=== PATIENT | male | born 1955 | race American Indian/Alaskan Native ===

== ENCOUNTER 2020-10-26 12:12 | Emergency (ER) | payer MEDICARE ==
--- NOTE | 2020-10-26 12:38 | Event Note ---
ED Screening Note ED Screening Note: Patient states he tested positive for Covid on 10/18/2020 He states he received the COVID-19 vaccine shot on 10/10/2020 He states that 2 days before he received the vaccine, he had a client come into his office and was coughing, he states that they tested positive for Covid He has associated cough, shortness of breath, chest discomfort after frequent coughing, diarrhea He denies any fever, nausea, vomiting, abdominal pain Past medical history of gout No allergies to medications This initial assessment/diagnostic orders/clinical plan/treatment(s) is/are subject to change based on patients health status, clinical progression and re- assessment by fellow clinical providers in the ED. Further treatment and workup at subsequent clinical providers discretion. Patient/guardian urged not to elope from the ED as their condition may be serious if not clinically assessed and managed. Initial orders include: Labs, x-ray
[2020-10-26 13:25] LABS: Basophils % (Auto) 0.7 % (0.0-1.8); Eosinophils # (Auto) 0.1 K/mm3 (0.0-0.4); Eosinophils % (Auto) 1.1 % (0.0-4.3); Hematocrit 45.7 % (35.5-45.6); Lymphocytes # (Auto) 1.9 K/mm3 (1.2-5.4); Lymphocytes % (Auto) 31.3 % (13.4-35.0); Mean Corpuscular HGB Conc 33 % (32-34); Mean Corpuscular Volume 87 fl (84-94); Monocytes # (Auto) 0.7 K/mm3 (0.0-0.8); Monocytes % (Auto) 11.3 % (0.0-7.3); Platelet Count 364 K/mm3 (140-440); Red Blood Count 5.26 M/mm3 (3.65-5.03); Red Cell Distribution Width 15.5 % (13.2-15.2)
[2020-10-26 13:44] LABS: Alanine Aminotransferase 38 units/L (7-56); Albumin 3.4 g/dL (3.9-5); BUN/Creatinine Ratio 11; Blood Urea Nitrogen 10 mg/dL (9-20); Calcium 8.8 mg/dL (8.4-10.2); Hemolysis Index 14
--- NOTE | 2020-10-26 13:44 | XRay Report ---
CHEST 2 VIEWS INDICATION: cough, SOB, COVID +. COMPARISON: None FINDINGS: SUPPORT DEVICES: None. HEART: Within normal limits. LUNGS/PLEURA: Mild patchy multifocal airspace disease. No effusion. No pneumothorax. ADDITIONAL FINDINGS: None. IMPRESSION: 1. Pulmonary findings as above can be seen with Covid pneumonia. Signer Name: Guevara Sheridan MD Signed: 10/26/2020 1:40 PM Workstation Name: [id number]
--- NOTE | 2020-10-26 14:05 | Emergency Department Report ---
- General Chief Complaint: Dyspnea/Respdistress Stated Complaint: CHEST PAIN, CALLIE Time Seen by Provider: 10/26/20 14:02 Source: patient Mode of arrival: Ambulatory Limitations: No Limitations - History of Present Illness Initial Comments: Patient states he tested positive for Covid on 10/18/2020 He states he received the COVID-19 vaccine shot on 10/10/2020 He states that 2 days before he received the vaccine, he had a client come into his office and was coughing, he states that they tested positive for Covid He has associated cough, shortness of breath, chest discomfort after frequent coughing, diarrhea He denies any fever, nausea, vomiting, abdominal pain Past medical history of gout No allergies to medications - Related Data Previous Rx's Medication Instructions Recorded Last Taken Type Albuterol Sulfate [Proventil Hfa] 1 inhalation IH TID PRN #1 10/26/20 Unknown Rx hfa.[email or web address] Azithromycin [Zithromax TAB] 250 mg PO QDAY 5 Days #6 tablet 10/26/20 Unknown Rx Prednisone [predniSONE 10 mg 10 mg PO .TAPER #1 tab.ds.pk 10/26/20 Unknown Rx (6-Day Pack, 21 Tabs)] Allergies Allergy/AdvReac Type Severity Reaction Status Date / Time No Known Allergies Allergy Verified 10/26/20 12:38 ED Review of Systems ROS: Stated complaint: CHEST PAIN, CALLIE Other details as noted in HPI Comment: All other systems reviewed and negative ED Past Medical Hx - Past Medical History Additional medical history: gout - Surgical History Past Surgical History?: No Additional Surgical History: L knee sx. fluroscopy - Social History Smoking Status: Former Smoker Substance Use Type: None - Medications Home Medications: Home Medications Medication Instructions Recorded Confirmed Last Taken Type Albuterol Sulfate [Proventil Hfa] 1 inhalation IH TID PRN #1 10/26/20 Unknown Rx hfa.[email or web address] Azithromycin [Zithromax TAB] 250 mg PO QDAY 5 Days #6 tablet 10/26/20 Unknown Rx Prednisone [predniSONE 10 mg 10 mg PO .TAPER #1 tab.ds.pk 10/26/20 Unknown Rx (6-Day Pack, 21 Tabs)] ED Physical Exam - General Limitations: No Limitations General appearance: alert, in no apparent distress - Head Head exam: Present: atraumatic, normocephalic - Eye Eye exam: Present: normal appearance - ENT ENT exam: Present: mucous membranes moist - Respiratory Respiratory exam: Present: normal lung sounds bilaterally. Absent: respiratory distress, wheezes, rales, rhonchi, stridor, chest wall tenderness, accessory muscle use, decreased breath sounds, prolonged expiratory - Cardiovascular Cardiovascular Exam: Present: regular rate, normal rhythm, normal heart sounds. Absent: systolic murmur, diastolic murmur, rubs, gallop - Neurological Exam Neurological exam: Present: alert, oriented X3 - Psychiatric Psychiatric exam: Present: normal affect, normal mood - Skin Skin exam: Present: warm, dry, intact ED Course Vital Signs 10/26/20 10/26/20 12:37 14:47 Temperature 99.0 F 99.1 F Pulse Rate 62 60 Respiratory 20 20 Rate Blood Pressure 161/100 Blood Pressure 157/116 [Right] O2 Sat by Pulse 96 96 Oximetry ED Medical Decision Making - Lab Data Result diagrams: 10/26/20 12:52 10/26/20 12:52 Lab Results 10/26/20 10/26/20 Range/Units 12:52 12:52 WBC 6.0 (4.5-11.0) K/mm3 RBC 5.26 H (3.65-5.03) M/mm3 Hgb 15.0 (11.8-15.2) gm/dl Hct 45.7 H (35.5-45.6) % MCV 87 (84-94) fl MCH 28 (28-32) pg MCHC 33 (32-34) % RDW 15.5 H (13.2-15.2) % Plt Count 364 (140-440) K/mm3 Lymph % (Auto) 31.3 (13.4-35.0) % Letcher % (Auto) 11.3 H (0.0-7.3) % Eos % (Auto) 1.1 (0.0-4.3) % Baso % (Auto) 0.7 (0.0-1.8) % Lymph # (Auto) 1.9 (1.2-5.4) K/mm3 Letcher # (Auto) 0.7 (0.0-0.8) K/mm3 Eos # (Auto) 0.1 (0.0-0.4) K/mm3 Baso # (Auto) 0.0 (0.0-0.1) K/mm3 Seg Neutrophils % 55.6 (40.0-70.0) % Seg Neutrophils # 3.3 (1.8-7.7) K/mm3 Sodium 140 (137-145) mmol/L Potassium 4.3 (3.6-5.0) mmol/L Chloride 102.2 (98-107) mmol/L Carbon Dioxide 28 (22-30) mmol/L Anion Gap 14 mmol/L BUN 10 (9-20) mg/dL Creatinine 0.9 (0.8-1.3) mg/dL Estimated GFR > 60 ml/min BUN/Creatinine Ratio 11 % Glucose 85 (75-100) mg/dL Calcium 8.8 (8.4-10.2) mg/dL Total Bilirubin 0.70 (0.1-1.2) mg/dL AST 23 (5-40) units/L ALT 38 (7-56) units/L Alkaline Phosphatase 81 (35-129) units/L Total Protein 6.7 (6.3-8.2) g/dL Albumin 3.4 L (3.9-5) g/dL Albumin/Globulin Ratio 1.0 % Vital Signs 10/26/20 10/26/20 12:37 14:47 Temperature 99.0 F 99.1 F Pulse Rate 62 60 Respiratory 20 20 Rate Blood Pressure 161/100 Blood Pressure 157/116 [Right] O2 Sat by Pulse 96 96 Oximetry - Radiology Data Radiology results: report reviewed Ordering Physician: LALA RICE Date of Service: 10/26/20 Procedure(s): XR chest routine 2V Accession Number(s): [id number] cc: LALA RICE Fluoro Time In Minutes: CHEST 2 VIEWS INDICATION: cough, SOB, COVID +. COMPARISON: None FINDINGS: SUPPORT DEVICES: None. HEART: Within normal limits. LUNGS/PLEURA: Mild patchy multifocal airspace disease. No effusion. No pneumothorax. ADDITIONAL FINDINGS: None. IMPRESSION: 1. Pulmonary findings as above can be seen with Covid pneumonia. Signer Name: Guevara Sheridan MD Signed: 10/26/2020 1:40 PM Workstation Name: [id number] Transcribed By: ALONA Dictated By: Guevara Sheridan MD Electronically Authenticated By: Guevara Sheridan MD Signed Date/Time: 10/26/20 1340 DD/ 1339 TD/TT: - Medical Decision Making Patient states he tested positive for Covid on 10/18/2020 He states he received the COVID-19 vaccine shot on 10/10/2020 He states that 2 days before he received the vaccine, he had a client come into his office and was coughing, he states that they tested positive for Covid He has associated cough, shortness of breath, chest discomfort after frequent coughing, diarrhea He denies any fever, nausea, vomiting, abdominal pain Past medical history of gout No allergies to medications vitals with elevated BP, otherwise stable, discussed elevated BP with pt, advised to follow up with PCP, discussed low sodium diet, increasing water intake, keep BP log, follow up with PCP. breath sounds are clear bilaterally, no w/r/r. labs are normal. CXR: 1. Pulmonary findings as above can be seen with Covid pneumonia. pt has no hypoxia, no tachycardia, no fever. given prescription for steroids, azithromycin, and albuterol inhaler. advised pt Please take medication as prescribed. Please increase your fluid intake over the next several days. May take Tylenol as needed for fever or body aches. Follow-up with a primary care doctor for reexamination. Return to emergency room immediately for any new or worsening symptoms including but not limited to difficulty breathing, shortness of breath, severe chest pain, unable to tolerate by mouth intake, etc. Please self quarantine for 10 days from the onset of your symptoms. Please do not go out in public. If you are around others at home please wear a mask. If you need to cough or sneeze please do so in a napkin and immediately throw it away and immediately wash your hands. Wash your hands frequently. Wipe everything down. Critical care attestation.: If time is entered above; I have spent that time in minutes in the direct care of this critically ill patient, excluding procedure time. ED Disposition Clinical Impression: Pneumonia due to COVID-19 virus Disposition: - TO HOME OR SELFCARE Is pt being admited?: No Does the pt Need Aspirin: No Condition: Stable Instructions: COVID-19, COVID-19: How to Protect Yourself and Others - CDC, Prevent the Spread of COVID-19 if You Are Sick - CDC, Bacterial Pneumonia (ED) Additional Instructions: Please take medication as prescribed. Please increase your fluid intake over t he next several days. May take Tylenol as needed for fever or body aches. Follow-up with a primary care doctor for reexamination. Return to emergency room immediately for any new or worsening symptoms including but not limited to difficulty breathing, shortness of breath, severe chest pain, unable to tolerate by mouth intake, etc. Please self quarantine for 10 days from the onset of your symptoms. Please do not go out in public. If you are around others at home please wear a mask. If you need to cough or sneeze please do so in a napkin and immediately throw it away and immediately wash your hands. Wash your hands frequently. Wipe everything down. Prescriptions: Prednisone [predniSONE 10 mg (6-Day Pack, 21 Tabs)] 10 mg PO .TAPER #1 tab.ds.pk Albuterol Sulfate [Proventil Hfa] 1 inhalation IH TID PRN #1 hfa.aer.ad PRN Reason: shortness of breath/wheezing Azithromycin [Zithromax TAB] 250 mg PO QDAY 5 Days #6 tablet Referrals: MARIAELENA WIN MD [Staff Physician] - 2-3 Days [facility] [Provider Group] - 2-3 Days Time of Disposition: 14:03 Print Language: [place]
[2020-10-26 14:53] VITALS: BP 157/116
== END 2020-10-26 14:30 | disposition home or self-care (01) ==
LOC: ED 12:12
DX: U07.1 COVID-19 (principal); J12.89 Other viral pneumonia; M10.9 Gout, unspecified; Z87.891 Personal history of nicotine dependence; Z79.899 Other long term (current) drug therapy; Z98.890 Other specified postprocedural states
CPT/HCPCS: 36415; 71046; 80053; 85025